=== PATIENT | male | born 1975 | race Hispanic/Latino ===

== ENCOUNTER 2024-03-31 10:57 | Emergency (ER) | payer BC ==
[~2024-03-31] VITALS: Ht 167.6 cm; Wt 118.8 kg
[2024-03-31 11:23] VITALS: PULSE 110; RESP 18; TEMP 97.6; O2SAT 96
[2024-03-31] MEDS ORDERED: DEXAMETHASONE4 MG PO (11:47)
[2024-03-31] MEDS ORDERED: NAPROXEN250 MG PO (11:48)
== END 2024-03-31 12:15 | disposition home or self-care (01) ==
LOC: ER 11:02
DX: M25.562 Pain in left knee (principal); X50.1XXA Overexertion from prolonged static or awkward postures, initial encounter; Y92.89 Other specified places as the place of occurrence of the external cause; I10 Essential (primary) hypertension; R73.03 Prediabetes
CPT/HCPCS: 99283